=== PATIENT | female | born 1990 | race Two or more races ===

== ENCOUNTER 2023-11-12 21:32 | Emergency (ER) | payer OTHER ==
[2023-11-13] MEDS: Cefdinir 300 MG Cap PO ONE (00:20)
[2023-11-13] MEDS: Diphtheria,Pertussis(Acell),Tetanus Vaccine 0.5 ML Syringe IM ONE (00:20)
[2023-11-13] MEDS: Acetaminophen 325 MG Tab PO ONE (00:20)
== END 2023-11-13 00:23 | disposition home or self-care (01) ==
LOC: JD.ED 21:32
DX: S61.431A Puncture wound without foreign body of right hand, initial encounter (principal); Z23 Encounter for immunization; W26.0XXA Contact with knife, initial encounter
CPT/HCPCS: 73130; 90471; 90715; 99283; A9270